=== PATIENT | male | born 1970 | race African-American/Black ===

== ENCOUNTER 2019-07-27 21:05 | Inpatient (IN) | payer MEDICARE, MEDICAID ==
[~2019-07-27] VITALS: Ht 165.1 cm; Wt 70.8 kg
[~2019-07-27 21:05] MED LIST: ATRIPLA1 TAB ORAL; ATROVENT15 M1 NASAL; BACTRIM DS TAB1 EAC1 ORAL; BACTRIM-DS1 EA ORAL; CIPRO500 MG PO; COMPLERA TABLE1 EACH ORAL; CYCLOBENZAPRINE10 MG ORAL; DEPAKOTE500 MG PO; DIFLUCAN200 MG ORAL; FLUCONAZOLE200 MG ORAL; METRONIDAZOLE500 MG ORAL; OXYCODONE HCL15 M1 ORAL; SEROSTIM6 M1 SQ; STRIBILD TABLE1 EACH PO; TRAMADOL HCL50 MG ORAL; TRAZODONE HCL100 MG ORAL; VENTOLIN HFA18 GM INH; ZITHROMAX250 MG ORAL; ZITHROMAX600 MG ORAL; ZOFRAN ODT8 MG ORAL
[2019-07-27 21:20] VITALS: BP 167/89
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
[2019-07-27] MEDS ORDERED: HYDROcodone/Acetamin 5/325 tab ORAL ONE (21:30)
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
--- NOTE | 2019-07-27 21:40 | NUR ---
ED Nurse Note: Pt sent to CT
--- NOTE | 2019-07-27 21:59 | NUR ---
ED Nurse Note: Pt with X-ray tech
[2019-07-27 22:22] LABS: APPEARANCE,URINE CLEAR; BILIRUBIN, URINE NEGATIVE (NEGATIVE); COLOR,URINE PALE YELLOW; GLUCOSE, URINE (UA) NEGATIVE (NEGATIVE); KETONES,URINE NEGATIVE (NEGATIVE); LEUKOCYTE ESTERASE ,URINE NEGATIVE (NEGATIVE); NITRITE,URINE NEGATIVE (NEGATIVE); PH,URINE 6.5 (4.5-8.0); PROTEIN,URINE 1+ (NEGATIVE); UROBILINOGEN,URINE NORMAL MG/DL (0.0-1.0)
[2019-07-27 22:25] LABS: BASOPHILS % (AUTO) 1.6 % (0.0-2.0); EOSINOPHILS % (AUTO) 0.3 % (0.0-3.0); HEMATOCRIT 38.2 % (42.0-52.0); HEMOGLOBIN 12.4 G/DL (14.2-18.0); LYMPHOCYTES % (AUTO) 29.2 % (20.0-45.0); MEAN CORPUSCULAR VOLUME 85 FL (80-99); MONOCYTES % (AUTO) 10.2 % (1.0-10.0); NEUTROPHILS % (AUTO) 58.8 % (45.0-75.0); PLATELET COUNT 121 K/UL (150-450); RED CELL DISTRIBUTION WIDTH 11.3 % (11.6-14.8); WHITE BLOOD COUNT 4.5 K/UL (4.8-10.8)
[2019-07-27 22:33] LABS: ANION GAP 7 mmol/L (5-15); BLOOD UREA NITROGEN 19 mg/dL (7-18); CALCIUM 9.8 MG/DL (8.5-10.1); CARBON DIOXIDE 31 MMOL/L (21-32); CHLORIDE 103 MMOL/L (98-107); CREATININE 1.5 MG/DL (0.55-1.30); POTASSIUM 4.8 MMOL/L (3.5-5.1); SODIUM 141 MMOL/L (136-145)
[2019-07-27 22:48] LABS: ALANINE AMINOTRANSFERASE 32 U/L (12-78); ALBUMIN/GLOBULIN RATIO 1.1 (1.0-2.7); ALKALINE PHOSPHATASE 66 U/L (46-116); ASPARTATE AMINO TRANSFERASE 38 U/L (15-37); BILIRUBIN,TOTAL 0.4 MG/DL (0.2-1.0); CREATINE KINASE 251 U/L (26-308)
[2019-07-27] MEDS ORDERED: Enoxaparin 80mg Inj SUBQ ONE (23:00)
[2019-07-27] MEDS ORDERED: Aspirin Baby 81mg ORAL ONE (23:00)
--- NOTE | 2019-07-27 23:45 | NUR ---
ED Nurse Report given to DARLENE Cole. Room not ready at this time pre DARLENE Cole.
[2019-07-28] VITALS (12 sets, daily range): BP systolic 102–153; BP diastolic 64–90
--- NOTE | 2019-07-28 | NUR ---
NURSE NOTES: Received report from Nahum Kirk RN. regarding patient's transfer to TELE floor from ED. Arrived via gurney accompanied by Belle and RN. Patient ambulated from gurney to bed with no assistance. Belongings checked and noted, head to toe assessment initiated with no skin breakdown observed. Placed on continuous cardiac monitoring per protocol, IV line intact and patent SL. VS obtained and noted. No complaints of acute pain or discomfort per patient. Safety precaution in place; siderails X2 up, call light within reach, bed in lowest position, brakes and alarm, on at all times. Needs and wants anticipated and attended. Will continue to monitor. MD Steve. called and left message for admit orders. Awaiting call-back
--- NOTE | 2019-07-28 01:24 | NUR ---
TRANSFER TO FLOOR: Patient transferred to as ordered, per MD Steve. Report given to DARLENE Cole. Belongings and medications given to Patient. Family and or S/O informed of transfer.
--- NOTE | 2019-07-28 02:00 | NUR ---
NURSE NOTES: New orders received and carried out per Don Tracey MD. Will continue plan of care.
[2019-07-28] MEDS ORDERED: Ipratropium 0.02% Inh Soln 2.5ml UD HHN PRN ×3 (02:30→17:30)
[2019-07-28] MEDS ORDERED: oxyCODONE 15mg IR tab ORAL PRN ×2 (02:30→17:30)
--- NOTE | 2019-07-28 03:18 | NUR ---
NURSE NOTES: Patient in bed asleep with no S/S of distress noted. Will continue to monitor.
--- NOTE | 2019-07-28 06:55 | NUR ---
HAND-OFF: Report given to Lolita Quinteros RN. Patient in bed with no S/S of distress noted. Endorsed plan of care.
--- NOTE | 2019-07-28 07:00 | NUR ---
NURSE NOTES: received patient report from baljeet ramsey patient is on bed awake. no tin acute distress. on RA. NSR. no arrythmias reported during the night. bed is low and locked for safety. will follow plan of care.
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
[2019-07-28] MEDS ORDERED: Fluconazole 100mg tab ORAL SCH (09:00)
[2019-07-28] MEDS ORDERED: Depakote 500mg tab ORAL SCH (09:00)
[2019-07-28 09:19] LABS: BASOPHILS % (AUTO) 1.1 % (0.0-2.0); EOSINOPHILS % (AUTO) 0.3 % (0.0-3.0); HEMATOCRIT 37.4 % (42.0-52.0); HEMOGLOBIN 12.4 G/DL (14.2-18.0); LYMPHOCYTES % (AUTO) 31.1 % (20.0-45.0); MEAN CORPUSCULAR VOLUME 84 FL (80-99); MONOCYTES % (AUTO) 11.2 % (1.0-10.0); NEUTROPHILS % (AUTO) 56.2 % (45.0-75.0); PLATELET COUNT 123 K/UL (150-450); RED BLOOD COUNT 4.45 M/UL (4.70-6.10); WHITE BLOOD COUNT 4.6 K/UL (4.8-10.8)
[2019-07-28] MEDS ORDERED: COREG3.125 MG ORAL (09:30)
[2019-07-28] MEDS ORDERED: SPIRONOLACTONE25 MG ORAL (09:30)
[2019-07-28 10:13] LABS: ANION GAP 7 mmol/L (5-15); BLOOD UREA NITROGEN 15 mg/dL (7-18); CARBON DIOXIDE 27 MMOL/L (21-32); CHLORIDE 105 MMOL/L (98-107); CREATININE 1.2 MG/DL (0.55-1.30); POTASSIUM 3.4 MMOL/L (3.5-5.1); SODIUM 139 MMOL/L (136-145)
--- NOTE | 2019-07-28 10:27 | NUR ---
NURSE NOTES: Lab called regarding a rise in troponin from 0.415 to 2.337. Md Pulliam and Afsaneh made aware, ran a Stat EKG and Md Shelby aware of results.
[2019-07-28] MEDS ORDERED: Spironolactone 25mg tab ORAL SCH (12:00)
[2019-07-28 12:15] LABS: BASOPHILS % (AUTO) 1.1 % (0.0-2.0); EOSINOPHILS % (AUTO) 0.2 % (0.0-3.0); HEMATOCRIT 38.4 % (42.0-52.0); HEMOGLOBIN 12.3 G/DL (14.2-18.0); LYMPHOCYTES % (AUTO) 30.7 % (20.0-45.0); MEAN CORPUSCULAR VOLUME 85 FL (80-99); MONOCYTES % (AUTO) 12.2 % (1.0-10.0); NEUTROPHILS % (AUTO) 55.8 % (45.0-75.0); PLATELET COUNT 117 K/UL (150-450); RED BLOOD COUNT 4.52 M/UL (4.70-6.10); WHITE BLOOD COUNT 4.4 K/UL (4.8-10.8)
[2019-07-28] MEDS ORDERED: Heparin 25,000u/D5W 500ml 500 ML IV SCH ×3 (13:00→20:00)
--- NOTE | 2019-07-28 13:01 | NUR ---
NURSE NOTES: started heparin drip on this patient at prescribed rate. ptt will be ordered 6hrs after initial dose. patient was requesting to be transferred to [facility]. will call dr junior regarding patients request.
--- NOTE | 2019-07-28 15:00 | NUR ---
NURSE NOTES: deniad dk burdick for patients request to be transferred to [facility]. awaits callback and new order.
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
--- NOTE | 2019-07-28 15:50 | Cardiac Electrophysiology PN ---
Subjective Subjective Patient seen and dictated. [id number] Objective Last 24 Hour Vital Signs Date Time Temp Pulse Resp B/P (MAP) Pulse Ox O2 Delivery O2 Flow Rate FiO2 07/28/19 12:00 97.9 20 130/84 (99) 98 07/28/19 11:53 60 07/28/19 09:00 Room Air 07/28/19 08:00 98.2 20 140/80 (100) 100 07/28/19 08:00 61 07/28/19 04:00 60 07/28/19 04:00 97.4 15 127/66 (86) 97 07/28/19 03:28 Room Air 07/28/19 02:30 62 07/28/19 01:24 98.8 92 29 167/89 96 Room Air 07/28/19 00:00 98.1 18 134/73 (93) 96 07/27/19 22:10 98.8 07/27/19 21:20 98.5 92 29 167/89 96 Room Air 07/27/19 21:09 98.8 80 16 160/105 (123) 96 Room Air Intake and Output 07/27/19 07/28/19 19:00 07:00 Intake Total 0 ml Output Total 300 ml Balance -300 ml Intake Oral 0 ml Output Urine Total 300 ml # Bowel Movements 2 Laboratory Tests Test 07/27/19 21:55 07/28/19 08:35 07/28/19 11:52 White Blood Count 4.5 K/UL (4.8-10.8) L 4.6 K/UL (4.8-10.8) L 4.4 K/UL (4.8-10.8) L Red Blood Count 4.50 M/UL (4.70-6.10) L 4.45 M/UL (4.70-6.10) L 4.52 M/UL (4.70-6.10) L Hemoglobin 12.4 G/DL (14.2-18.0) L 12.4 G/DL (14.2-18.0) L 12.3 G/DL (14.2-18.0) L Hematocrit 38.2 % (42.0-52.0) L 37.4 % (42.0-52.0) L 38.4 % (42.0-52.0) L Mean Corpuscular Volume 85 FL (80-99) 84 FL (80-99) 85 FL (80-99) Mean Corpuscular Hemoglobin 27.5 PG (27.0-31.0) 27.8 PG (27.0-31.0) 27.2 PG (27.0-31.0) Mean Corpuscular Hemoglobin Concent 32.4 G/DL (32.0-36.0) 33.1 G/DL (32.0-36.0) 32.0 G/DL (32.0-36.0) Red Cell Distribution Width 11.3 % (11.6-14.8) L 12.0 % (11.6-14.8) 12.0 % (11.6-14.8) Platelet Count 121 K/UL (150-450) L 123 K/UL (150-450) L 117 K/UL (150-450) L Mean Platelet Volume 8.9 FL (6.5-10.1) 8.5 FL (6.5-10.1) 8.7 FL (6.5-10.1) Neutrophils (%) (Auto) 58.8 % (45.0-75.0) 56.2 % (45.0-75.0) 55.8 % (45.0-75.0) Lymphocytes (%) (Auto) 29.2 % (20.0-45.0) 31.1 % (20.0-45.0) 30.7 % (20.0-45.0) Monocytes (%) (Auto) 10.2 % (1.0-10.0) H 11.2 % (1.0-10.0) H 12.2 % (1.0-10.0) H Eosinophils (%) (Auto) 0.3 % (0.0-3.0) 0.3 % (0.0-3.0) 0.2 % (0.0-3.0) Basophils (%) (Auto) 1.6 % (0.0-2.0) 1.1 % (0.0-2.0) 1.1 % (0.0-2.0) Urine Color Pale yellow Urine Appearance Clear Urine pH 6.5 (4.5-8.0) Urine Specific [place] 1.015 (1.005-1.035) Urine Protein 1+ (NEGATIVE) H Urine Glucose (UA) Negative (NEGATIVE) Urine Ketones Negative (NEGATIVE) Urine Blood Negative (NEGATIVE) Urine Nitrite Negative (NEGATIVE) Urine Bilirubin Negative (NEGATIVE) Urine Urobilinogen Normal MG/DL (0.0-1.0) Urine Leukocyte Esterase Negative (NEGATIVE) Urine RBC 0-2 /HPF (0 - 0) H Urine WBC 0-2 /HPF (0 - 0) Urine Squamous Epithelial Cells Occasional /LPF Urine Bacteria Few /HPF (NONE) Urine Mucus Many /LPF (NONE/OCC) H Sodium Level 141 MMOL/L (136-145) 139 MMOL/L (136-145) Potassium Level 4.8 MMOL/L (3.5-5.1) 3.4 MMOL/L (3.5-5.1) L Chloride Level 103 MMOL/L (98-107) 105 MMOL/L (98-107) Carbon Dioxide Level 31 MMOL/L (21-32) 27 MMOL/L (21-32) Anion Gap 7 mmol/L (5-15) 7 mmol/L (5-15) Blood Urea Nitrogen 19 mg/dL (7-18) H 15 mg/dL (7-18) Creatinine 1.5 MG/DL (0.55-1.30) H 1.2 MG/DL (0.55-1.30) Estimat Glomerular Filtration Rate 59.8 mL/min (>60) > 60 mL/min (>60) Glucose Level 107 MG/DL (74-106) H 119 MG/DL (74-106) H Calcium Level 9.8 MG/DL (8.5-10.1) 9.0 MG/DL (8.5-10.1) Total Bilirubin 0.4 MG/DL (0.2-1.0) Aspartate Amino Transf (AST/SGOT) 38 U/L (15-37) H Alanine Aminotransferase (ALT/SGPT) 32 U/L (12-78) Alkaline Phosphatase 66 U/L (46-116) Total Creatine Kinase 251 U/L (26-308) Creatine Kinase MB 2.0 NG/ML (0.0-3.6) Creatine Kinase MB Relative Index 0.7 Troponin I 0.415 ng/mL (0.000-0.056) 2.337 ng/mL (0.000-0.056) Total Protein 7.8 G/DL (6.4-8.2) Albumin 4.0 G/DL (3.4-5.0) Globulin 3.8 g/dL Albumin/Globulin Ratio 1.1 (1.0-2.7) Urine Opiates Screen Negative (NEGATIVE) Urine Barbiturates Screen Negative (NEGATIVE) Phencyclidine (PCP) Screen Negative (NEGATIVE) Urine Amphetamines Screen Negative (NEGATIVE) Urine Benzodiazepines Screen Negative (NEGATIVE) Urine Cocaine Screen Negative (NEGATIVE) Urine Marijuana (THC) Screen Positive (NEGATIVE) H Magnesium Level 1.9 MG/DL (1.8-2.4) Prothrombin Time 10.8 SEC (9.30-11.50) Prothromb Time International Ratio 1.0 (0.9-1.1) Activated Partial Thromboplast Time 33 SEC (23-33) Jordan Shelby MD Jul 28, 2019 15:50
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
--- NOTE | 2019-07-28 16:37 | Diagnostic Imaging Report ---
EXAM: XR Right Ankle Complete, 3 or More Views CLINICAL HISTORY: PAIN TECHNIQUE: Frontal, lateral and oblique views of the right ankle. COMPARISON: No relevant prior studies available. FINDINGS: Bones joints: No acute fracture. Soft tissues: No radiodense foreign body. IMPRESSION: No acute fracture.
--- NOTE | 2019-07-28 17:00 | NUR ---
HAND-OFF: Report given to sarah ramsey to icu. Bed B.
--- NOTE | 2019-07-28 17:14 | NUR ---
NURSE NOTES: Patient is transferred from Tele. Received report from DARLENE Thurman. Patient is alert and oriented x4. No acute distress/SOB noted. Patient denies any pain/discomfort at this time. Afebrile. SR on the monitor. On room air. Heparin drip running 12units/kg/hr via right AC 18G. Call light placed in easy reach. Will continue plan of care.
--- NOTE | 2019-07-28 17:56 | NUR ---
TRANSFER TO FLOOR: Patient transferred to icu BED B per DR DUNBAR ORDER. Report given to RITO NR. Belongings and medications given to RN. Family and or S/O informed of transfer.
--- NOTE | 2019-07-28 18:35 | NUR ---
NURSE NOTES: Blood is collected for PTT. Will follow up.
--- NOTE | 2019-07-28 19:30 | NUR ---
NURSE NOTES: Received pt awake and alert AOx4, DIANE x4 SR on the monitor, Bp stable, afebrile. Pt on Heparin drip at 12u/kg/min infusing to RT AC site atraumatic. No C/o of any CP nor SOB at this time. Relatives at bedside- Updated with pts condition. Verbalized understanding.
--- NOTE | 2019-07-28 19:44 | NUR ---
HAND-OFF: Report given to DARLENE Hernandez. Endorsed plan of care.
[2019-07-28] MEDS ORDERED: Heparin 5000 units/ml inj IV SCH (20:00)
--- NOTE | 2019-07-28 20:27 | NUR ---
NURSE NOTES: PTT 47secs- increase drip to 16u/kg/hr.
[2019-07-28] MEDS ORDERED: TraZODone 50mg tab ORAL SCH ×2 (21:00)
--- NOTE | 2019-07-28 22:00 | NUR ---
NURSE NOTES: Served HS snack, tolerated 100%.
[2019-07-29] VITALS (18 sets, daily range): BP systolic 11–155; BP diastolic 68–86
--- NOTE | 2019-07-29 | NUR ---
NURSE NOTES: Dozing on and off vss.
--- NOTE | 2019-07-29 01:35 | NUR ---
NURSE NOTES: BP 108/68, SR on the monitor. Afbrile.
[2019-07-29] MEDS ORDERED: Heparin 25,000u/D5W 500ml 500 ML IV SCH ×2 (03:15→03:45)
--- NOTE | 2019-07-29 03:15 | NUR ---
NURSE NOTES: PTT 112 secs- Turned off Heparin drip for 30min.per protocol, Spoke to pipeline. then resume at 1300 u/kg/hr.
--- NOTE | 2019-07-29 03:45 | NUR ---
NURSE NOTES: Heparin drip resumed at 1300u/kg/hr . PTT at 0945
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
--- NOTE | 2019-07-29 05:00 | NUR ---
NURSE NOTES: Sleeping well at this time with vss
--- NOTE | 2019-07-29 06:30 | NUR ---
NURSE NOTES: NO CP nor SOB noted.
--- NOTE | 2019-07-29 07:25 | NUR ---
HAND-OFF: Report given to Adri COLON.
--- NOTE | 2019-07-29 07:30 | NUR ---
NURSE NOTES: Received report from DARLENE Hernandez. Patient is alert and oriented x4, pleasant on approach, following commands. No acute distress/SOB noted. Patient denies any pain/discomfort at this time. B/P: 132/75. SR on the monitor. On room air, O2Sat 100%. Heparin drip running @ 13units/kg/hr via Rt AC #18G. Repeat PTT at 09:45. Bed in lowest position, call light placed within reach. Will resume plan of care.
[2019-07-29] MEDS ORDERED: Spironolactone 25mg tab ORAL SCH (09:00)
--- NOTE | 2019-07-29 10:45 | NUR ---
NURSE NOTES: Dr. Pulliam at bedside assessing pt. Updated her on pt's current condition. Dr. Pulliam would like Dr. Corley to see pt to clear for discharge. Pt denies chest pain, no distress noted. Pt's recent PTT was 74, Heparin drip continues to run @ 13units/kg/hr with no changes.
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
--- NOTE | 2019-07-29 13:45 | NUR ---
NURSE NOTES: Dr. Corley at bedside assessing pt. Updated her on pt's current condition and mentioned Convo with Dr. Pulliam. Dr. Corley ordered EKG to assess if whether or not patient is ready for discharge.
--- NOTE | 2019-07-29 15:05 | NUR ---
NURSE NOTES: EKG done. Dr. Corley called and notified of results. Faxed her copies of EKG @ [phone].
--- NOTE | 2019-07-29 17:39 | NUR ---
NURSE NOTES: Patient was cleared for discharge by Dr. Corley. Dr. Pulliam ordered pt to be discharged home and reconciled medications. Pt was given discharge instructions. Pt took all of his belongings with him. Pt went home via own transportation. No physical concerns voiced and no distress noted.
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
--- NOTE | 2019-07-29 21:46 | Cardiology Progress Note ---
Assessment/Plan Assessment/Plan noted elevated troponin, probably due to defibrillator shock, reviewed ECG d/w Dr Stewart the patient will be seen next week and consider arrange for stress test, Dr Stewart reported that his previous angiography revealed patent coronary arteries Subjective Subjective The patient is asymptomatic, wants to go home denies dyspnea or chest pain Objective Last 24 Hour Vital Signs Date Time Temp Pulse Resp B/P (MAP) Pulse Ox O2 Delivery O2 Flow Rate FiO2 07/29/19 17:00 95 19 128/76 (93) 100 07/29/19 16:00 98.2 64 19 155/79 (104) 100 07/29/19 15:40 64 07/29/19 15:00 67 19 128/86 (100) 98 07/29/19 14:00 66 19 122/73 (89) 99 07/29/19 13:00 79 19 135/81 (99) 99 07/29/19 12:00 98.2 65 21 131/77 (95) 100 07/29/19 12:00 Room Air 07/29/19 11:36 71 07/29/19 11:00 65 22 135/77 (96) 100 07/29/19 10:00 67 19 119/80 (93) 100 07/29/19 09:00 70 19 123/82 (96) 100 07/29/19 08:37 85 133/75 07/29/19 08:15 60 07/29/19 08:00 Room Air 07/29/19 08:00 97.9 64 19 133/75 (94) 100 07/29/19 07:00 61 18 132/75 (94) 99 07/29/19 06:00 60 14 121/75 (90) 99 07/29/19 05:00 60 14 122/71 (88) 99 07/29/19 04:00 98.6 60 16 113/70 (84) 99 07/29/19 04:00 60 07/29/19 03:00 60 16 113/70 (84) 99 07/29/19 02:00 61 16 121/69 (86) 99 07/29/19 01:00 61 20 108/68 (81) 99 07/29/19 00:00 63 07/29/19 00:00 98.0 63 20 11/69 (50) 100 07/28/19 23:00 65 19 102/64 (77) 100 07/28/19 22:00 61 19 106/69 (81) 100 General Appearance: alert EENT: PERRL/EOMI Neck: no JVD Rhythm: NSR Cardiovascular: normal rate Respiratory/Chest: lungs clear Abdomen: non tender Extremities: no swelling Intake and Output 07/28/19 07/29/19 19:00 07:00 Intake Total 434.720 ml 469.077 ml Output Total 420 ml Balance 434.720 ml 49.077 ml Intake Oral 360 ml 220 ml IV Total 74.720 ml 249.077 ml Output Urine Total 420 ml # Bowel Movements 1 Laboratory Tests Test 07/29/19 02:29 07/29/19 09:45 Activated Partial Thromboplast Time 112 SEC (23-33) H 74 SEC (23-33) H Troponin I 1.940 ng/mL (0.000-0.056) Pro-B-Type Natriuretic Peptide 322 pg/mL (0-125) H Kaitlynn Corley MD Jul 29, 2019 21:46
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
--- NOTE | 2019-07-30 14:26 | Cardiology Report ---
APPROVED REPORT EKG Measurement Heart [id number] Sinus and atrial paced rhythm intermittently. Ventricular sensed rhythm T wave abnormality, consider inferior ischemia Abnormal ECG
--- NOTE | 2019-07-31 15:51 | Cardiology Report ---
APPROVED REPORT EXAM: Two-dimensional and M-mode echocardiogram with Doppler and color Doppler. INDICATION Congestive Heart Failure M-Mode DIMENSIONS IVSd0.9 (0.7-1.1cm)Left Atrium (MM)3.3 (1.6-4.0cm) LVDd5.4 (3.5-5.6cm)Aortic Root2.7 (2.0-3.7cm) PWd1.0 (0.7-1.1cm)Aortic Cusp Exc.2.0 (1.5-2.0cm) LVDs4.3 (2.5-4.0cm) PWs1.0 cm Moderate Global left ventricular hypokinesis. Normal left ventricular chamber size. Left ventricular ejection fraction estimated to be 40 %. No evidence of left ventricular hypertrophy. No evidence of pericardial effusion. Mild right ventricular enlargement. Left atrial chamber size is within normal limits. Right atrial chamber size is within normal limits. Focal aortic valve sclerosis with adequate cusp excursion. Thickened mitral valve leaflets with normal excursion. Mild mitral annulus and aortic root calcification. Normal pulmonic valve structure. Normal tricuspid valve structure. IVC is normal in size with physiological collapse. Pacemaker wire present in the right side chambers. A color flow and spectral Doppler study was performed and revealed: No aortic regurgitation. Mild mitral regurgitation. Mitral diastolic velocities suggest mild left ventricular diastolic dysfunction (Grade I). Mild tricuspid regurgitation. Tricuspid systolic velocities suggests peak right ventricular systolic pressure of 28 mmHg. No pulmonic regurgitation present.
--- NOTE | 2019-07-31 16:58 | Cardiology Report ---
APPROVED REPORT EKG Measurement Heart [id number] Normal sinus rhythm T wave abnormality, consider inferior ischemia Abnormal ECG
--- NOTE | 2019-07-31 16:59 | Cardiology Report ---
APPROVED REPORT EKG Measurement Heart [id number] [place] [id number] [id number] Normal sinus rhythm Cannot rule out Anterior infarct, age undetermined T wave abnormality, consider inferior ischemia Abnormal ECG
== END 2019-07-29 17:39 | disposition home or self-care (01) | DRG 315 ==
LOC: EMR 21:30 → 2E 22:11 → EDBEDREQ 22:43 → ICU 07-28 16:48
DX: T82.598A Other mechanical complication of other cardiac and vascular devices and implants, initial encounter (principal); I42.9 Cardiomyopathy, unspecified; B20 Human immunodeficiency virus [HIV] disease; F31.89 Other bipolar disorder; N17.9 Acute kidney failure, unspecified; Y83.8 Other surgical procedures as the cause of abnormal reaction of the patient, or of later complication, without mention of misadventure at the time of the procedure; I25.10 Atherosclerotic heart disease of native coronary artery without angina pectoris; S09.90XA Unspecified injury of head, initial encounter; W10.8XXA Fall (on) (from) other stairs and steps, initial encounter; Y92.89 Other specified places as the place of occurrence of the external cause; Z88.8 Allergy status to other drugs, medicaments and biological substances; F19.10 Other psychoactive substance abuse, uncomplicated; D69.6 Thrombocytopenia, unspecified; N18.9 Chronic kidney disease, unspecified; R74.9 Abnormal serum enzyme level, unspecified
CPT/HCPCS: 36415; 70450; 71045; 80048; 80053; 80307; 81003; 82550; 82553; 83735; 83880; 84484; 85025; 85610; 85730; 93005; 93306; 94664; 99285; J8499

== ENCOUNTER 2019-12-04 15:43 | Outpatient (CLI) | payer MEDICARE, MEDICAID ==
[~2019-12-04 15:43] MED LIST changes: +COREG3.125 MG ORAL; +SPIRONOLACTONE25 MG ORAL
--- NOTE | 2019-12-04 16:20 | Diagnostic Imaging Report ---
Indication: Cough Comparison: 07/27/2019 2 views of the chest obtained. Findings: Cardiomediastinal silhouette and pulmonary vascularity are within normal limits for age. Pacemaker noted in the left anterior chest wall. The diaphragmatic contour is smooth and costophrenic angles are sharp. No pleural effusions are identified. The bones are unremarkable. Impression: No acute disease. No change
== END 2019-12-04 17:43 | disposition home or self-care (01) ==
LOC: RAD 15:43
DX: R05 Cough (principal)
CPT/HCPCS: 71046